=== PATIENT | male | born 1985 | race Caucasian/White ===

== ENCOUNTER 2020-03-06 15:41 | Emergency (ER) | payer OTHER ==
[~2020-03-06] VITALS: Ht 182.9 cm; Wt 61.2 kg
--- NOTE | 2020-03-06 16:07 | NUR ---
PT IS IN ROOM #1B. DR ODEN EVALUATED THE PT.
[2020-03-06 16:36] LABS: *BILIRUBIN,URIN NEGATIVE (NEGATIVE); *BLOOD, URINE TRACE (NEGATIVE); *CLARITY,URINE SLIGHTLY CLOUDY (CLEAR); *COLOR,URINE YELLOW (YELLOW); *KETONES,URINE NEGATIVE (NEGATIVE); *UROBILINOGEN,URINE 0.2 E.U./dl (NORMAL); LEUKOCYTE ESTERASE ,URINE 3+ (NEGATIVE); NITRITE, URINE NEGATIVE (NEGATIVE); UGLUCOSE NEGATIVE (NEGATIVE)
[2020-03-06 16:48] LABS: BACTERIA,URINE MODERATE /HPF (NONE SEEN); SQUAMOUS EPITHELIAL CELL,UR FEW /HPF (NONE SEEN); WBC,URINE 50-80 /HPF (0-3)
--- NOTE | 2020-03-06 16:59 | NUR ---
PT WAS D/C'd TO HOME. D/C INSTRUCTIONS GIVEN TO THE PT.
[2020-03-06 17:00] VITALS: BP 134/81
[2020-03-09 07:16] LABS: *TRIC.VAG. NAA Negative (Negative)
[2020-03-09 08:51] LABS: *GC NAA Positive (Negative)
--- NOTE | 2020-03-11 10:01 | NUR ---
left message requesting call back re: lab finding
== END 2020-03-06 17:01 | disposition home or self-care (01) ==
LOC: ER 15:43
DX: N39.0 Urinary tract infection, site not specified (principal); R31.9 Hematuria, unspecified
CPT/HCPCS: 87086; 87491; A4663

== ENCOUNTER 2020-10-19 09:29 | Emergency (ER) | payer OTHER ==
[~2020-10-19] VITALS: Ht 182.9 cm; Wt 59.0 kg
--- NOTE | 2020-10-19 09:30 | NUR ---
PATIENT WAS MSE BY DR BAJWA.
[2020-10-19] MEDS ORDERED: DOXYCYCLINE HYCLATE 100 MG TABLET PO ONE (09:45)
[2020-10-19] MEDS ORDERED: CEFTRIAXONE 500 MG VIAL IM ONE (09:45)
[2020-10-19] MEDS ORDERED: LIDOCAINE 0.5% MPF 50 ML VIAL INJ ONE (09:45)
[2020-10-19] MEDS ORDERED: LIDOCAINE HCL 1% 20 ML VIAL ONE (10:13)
[2020-10-19] MEDS ORDERED: CEFTRIAXONE 500 MG VIAL ONE (10:13)
[2020-10-19] MEDS ORDERED: DOXYCYCLINE HYCLATE 100 MG TABLET ONE (10:13)
[2020-10-19 10:24] LABS: *BILIRUBIN,URIN NEGATIVE (NEGATIVE); *BLOOD, URINE 1+ (NEGATIVE); *CLARITY,URINE CLOUDY (CLEAR); *COLOR,URINE YELLOW (YELLOW); *KETONES,URINE 2+ (NEGATIVE); *UROBILINOGEN,URINE 0.2 E.U./dl (NORMAL); LEUKOCYTE ESTERASE ,URINE 3+ (NEGATIVE); NITRITE, URINE NEGATIVE (NEGATIVE); PH,URINE 6.5 (5.0-8.0); UGLUCOSE NEGATIVE (NEGATIVE)
--- NOTE | 2020-10-19 10:33 | NUR ---
Patient discharged to home in stable condition. Written and verbal after care instructions given. Patient verbalizes understanding of instructions. Stressed follow up or return to ER for worsening s/s.
[2020-10-19 10:35] VITALS: BP 116/68
[2020-10-19 15:44] LABS: WBC,URINE TNTC /HPF (0-3)
[2020-10-19 15:45] LABS: BACTERIA,URINE FEW /HPF (NONE SEEN); SQUAMOUS EPITHELIAL CELL,UR FEW /HPF (NONE SEEN)
== END 2020-10-19 10:37 | disposition home or self-care (01) ==
LOC: ER 09:29
DX: N39.0 Urinary tract infection, site not specified (principal); Z20.2 Contact with and (suspected) exposure to infections with a predominantly sexual mode of transmission
CPT/HCPCS: 81001; 87086; 96372; 99283; J0696; J3490; A4663

== ENCOUNTER 2021-07-26 09:14 | Emergency (ER) | payer OTHER ==
[~2021-07-26] VITALS: Ht 182.9 cm; Wt 58.1 kg
[2021-07-26 09:29] LABS: *BILIRUBIN,URIN NEGATIVE (NEGATIVE); *BLOOD, URINE 1+ (NEGATIVE); *CLARITY,URINE CLEAR (CLEAR); *COLOR,URINE LIGHT YELLOW (YELLOW); *KETONES,URINE NEGATIVE (NEGATIVE); *UROBILINOGEN,URINE 0.2 E.U./dl (NORMAL); LEUKOCYTE ESTERASE ,URINE 3+ (NEGATIVE); NITRITE, URINE NEGATIVE (NEGATIVE); UGLUCOSE NEGATIVE (NEGATIVE)
[2021-07-26] MEDS ORDERED: AZITHROMYCIN 250 MG TABLET PO ONE (10:15)
[2021-07-26] MEDS ORDERED: CEFTRIAXONE 500 MG VIAL IM ONE (10:15)
[2021-07-26] MEDS ORDERED: LIDOCAINE HCL 1% 20 ML VIAL ONE (10:19)
[2021-07-26] MEDS ORDERED: AZITHROMYCIN 250 MG TABLET ONE (10:19)
[2021-07-26] MEDS ORDERED: CEFTRIAXONE 500 MG VIAL ONE (10:19)
[2021-07-26] MEDS ORDERED: DOXY-326 PO (10:43)
[2021-07-26] MEDS ORDERED: NITR100C11 PO (10:43)
[2021-07-26] MEDS ORDERED: IBUP-1955 PO (10:43)
[2021-07-26 11:00] VITALS: BP 121/63
[2021-07-26 13:12] LABS: WBC,URINE 20-50 /HPF (0-3)
[2021-07-26 13:14] LABS: BACTERIA,URINE NONE SEEN /HPF (NONE SEEN); SQUAMOUS EPITHELIAL CELL,UR FEW /HPF (NONE SEEN)
[2021-07-28 08:06] LABS: *GC NAA Negative (Negative)
[2021-07-30 09:06] LABS: *TRIC.VAG. NAA Negative (Negative)
== END 2021-07-26 11:08 | disposition home or self-care (01) ==
LOC: ER 09:14
DX: N34.2 Other urethritis (principal); I86.1 Scrotal varices
CPT/HCPCS: 76870; 81001; 87086; 87491; 96372; 99284; J0696; J3490; A4663; Q0144